=== PATIENT | female | born 1985 | race Two or more races ===

== ENCOUNTER 2023-10-15 18:08 | Emergency (ER) | payer BC ==
[~2023-10-15] VITALS: Ht 162.6 cm; Wt 65.7 kg
[2023-10-15 18:10] VITALS: TEMP 98.3
[2023-10-15] MEDS ORDERED: FREM225A (18:21)
[2023-10-15] MEDS ORDERED: CLOBETASOL (18:21)
[2023-10-15] MEDS ORDERED: FLUO10CA18 (18:21)
[2023-10-15] MEDS ORDERED: HYDR12.55 (18:21)
[2023-10-15] MEDS ORDERED: RIZA10TA2 (18:21)
[2023-10-15 19:13] LABS: RSV AMPLIFICATION NEGATIVE (NEGATIVE)
[2023-10-15 20:47] LABS: BASO % 0.7 % (0.0-1.0); EOS % 0.3 % (0.0-3.0); HEMATOCRIT 44.7 % (36.0-47.0); HEMOGLOBIN 15.2 g/dl (12.0-15.5); LYMPH # 2.9 10^3/uL (1.5-5.0); LYMPH % 50.5 % (24.0-44.0); MEAN CORPUSCULAR HEMOGLOBIN 31.4 pg (27.0-33.0); MEAN CORPUSCULAR VOLUME 92.4 fl (80.0-96.0); MONO # 0.5 10^3/uL (0.0-0.8); MONO % 8.9 % (2.0-8.0); NEUTROPHILS # 2.3 10^3/uL (1.5-8.5); NEUTROPHILS % 39.1 % (36.0-66.0); PLATELET COUNT, AUTOMATED 192 10^3/uL (150-450); RED BLOOD COUNT 4.84 10^6/uL (4.00-5.40); WHITE BLOOD COUNT 5.8 10^3/uL (4.0-10.0)
[2023-10-15 21:19] LABS: ALKALINE PHOSPHATASE 88 U/L (46-116); ALT/SGPT 69 U/L (7.0-40); AST/SGOT 77 U/L (<34); BILIRUBIN,TOTAL 0.4 MG/DL (0.3-1.2); BLOOD UREA NITROGEN 8 MG/DL (9-23); CARBON DIOXIDE LEVEL 29 MMOL/L (20-31); CHLORIDE LEVEL 103 MMOL/L (98-107); CREATININE FOR GFR 0.74 MG/DL (0.55-1.30); GLOMERULAR FILTRATION RATE > 60.0 (>60); GLUCOSE, FASTING 87 MG/DL (60-100); POTASSIUM SERUM 4.4 MMOL/L (3.5-5.1); SODIUM LEVEL 137 MMOL/L (136-145); TOTAL PROTEIN 7.3 G/DL (5.7-8.2)
[2023-10-15] MEDS: METOCLOPRAMIDE INJ 10MG/2ML VIAL IV ONE (21:19)
[2023-10-15] MEDS: NS 1,000 ML IV ONE (21:19)
[2023-10-15] MEDS: methylPREDNISolone 125MG 2ML VIAL IV ONE (21:19)
[2023-10-15] MEDS: diphenhydrAMINE 50MG/ML VIAL IV ONE (21:19)
[2023-10-15 21:26] LABS: ERYTHROCYTE SEDIMENTATION RATE 20 mm/hr (0-20)
[2023-10-15] MEDS: MAG SULF 1GM/100ML (MAG RUN) 1 GM in IV 1 EA IV ONE (23:15)
[2023-10-16 01:15] VITALS: O2SAT 97
[2023-10-16 01:34] VITALS: BP 110/68
[2023-10-16] MEDS: VALPROATE SOD INJ 1,000 MG in D5W 50 ML IV ONE (01:34)
== END 2023-10-16 03:05 | disposition home or self-care (01) ==
LOC: M ED 18:08
DX: G43.909 Migraine, unspecified, not intractable, without status migrainosus (principal); Z87.442 Personal history of urinary calculi; Z88.0 Allergy status to penicillin
CPT/HCPCS: 70450; 80053; 84702; 85025; 85652; 86140; 87631; 96361; 96365; 96366; 96367; 99284; J1200; J2765; J2930; J3475